=== PATIENT | female | born 1955 | race Caucasian/White ===

== ENCOUNTER 2017-03-30 19:24 | Inpatient (IN) | payer MEDICAID ==
[~2017-03-30] VITALS: Ht 162.6 cm; Wt 61.2 kg
[2017-03-31] MEDS ORDERED: LIPI10 PO (01:44)
[2017-03-31] MEDS ORDERED: LOSARTAN POTASS25 M1 (01:44)
[2017-03-31 03:23] VITALS: BP 163/87
[2017-03-31 04:20] LABS: microscopic required? YES; urine erythrocyte NEGATIVE (NEGATIVE)
[2017-03-31 04:21] LABS: MAGNESIUM 2.4 mg/dL (1.8-2.4); PHOSPHOROUS 3.9 mg/dL (2.5-4.9)
[2017-03-31 04:24] LABS: CHOLESTEROL/HDL RATIO 3.5
[2017-03-31 04:27] LABS: T3 TOTAL 1.07 ng/mL
[2017-03-31 04:28] LABS: FREE T4 1.08 ng/dL (0.76-1.46); T4(THYROXINE) 7.9 ug/dL (4.7-13.3)
[2017-03-31 09:15] VITALS: BP 152/59
[2017-03-31 13:30] VITALS: BP 153/68
[2017-03-31 16:45] LABS: BASOPHIL % 0.3 % (0-2); PLATELET COUNT 274 x10^3mcL (130-400); RED CELL DISTRIBUTION WIDTH 12.9 % (11.5-14.5)
[2017-03-31 16:46] LABS: CALCIUM 8.9 mg/dL (8.5-10.1); CARBON DIOXIDE 29.1 mmol/L (21-32); CHLORIDE SERUM 109 mmol/L (98-107); CREATININE SERUM 0.7 mg/dL (0.6-1.0); GFR1 > 60 mL/min; GLUCOSE SERUM 93 mg/dL (74-106); POTASSIUM SERUM 3.9 mmol/L (3.5-5.1); SODIUM SERUM 143 mmol/L (136-145)
[2017-03-31 17:20] VITALS: BP 131/66
[2017-03-31 17:59] VITALS: BP 131/66
[2017-03-31 21:47] VITALS: BP 135/67
[2017-04-01 05:33] VITALS: BP 147/68
[2017-04-01 07:14] LABS: BASOPHIL % 0.7 % (0-2); PLATELET COUNT 257 x10^3mcL (130-400); RED CELL DISTRIBUTION WIDTH 12.8 % (11.5-14.5)
[2017-04-01 08:00] LABS: CALCIUM 8.9 mg/dL (8.5-10.1); CARBON DIOXIDE 28.2 mmol/L (21-32); CHLORIDE SERUM 110 mmol/L (98-107); CREATININE SERUM 0.6 mg/dL (0.6-1.0); GFR1 > 60 mL/min; GLUCOSE SERUM 89 mg/dL (74-106); POTASSIUM SERUM 4.1 mmol/L (3.5-5.1); SODIUM SERUM 142 mmol/L (136-145)
[2017-04-01 09:26] VITALS: BP 156/67
[2017-04-01 13:22] VITALS: BP 138/66
[2017-04-01] MEDS ORDERED: COZAAR100 MG PO ×2 (14:48→14:51)
[2017-04-01] MEDS ORDERED: BACTRIM1 TAB PO (14:53)
[2017-04-01] MEDS ORDERED: BD LACTINEX1.4 MG PO (14:56)
[2017-04-01] MEDS ORDERED: IBUPROFEN400 MG PO (15:14)
[2017-04-01] MEDS ORDERED: GOOD SENSE OMEP20 MG PO (15:15)
[2017-04-01 15:33] VITALS: BP 138/66
== END 2017-04-01 16:32 | disposition home or self-care (01) | DRG 463 ==
LOC: ED 19:24 → DU 03-31 01:22
PROVIDERS: Family Medicine; ADMIT Family Medicine
DX: N39.0 Urinary tract infection, site not specified (principal); N17.0 Acute kidney failure with tubular necrosis; G93.41 Metabolic encephalopathy; G56.02 Carpal tunnel syndrome, left upper limb; I10 Essential (primary) hypertension; E78.5 Hyperlipidemia, unspecified; J44.9 Chronic obstructive pulmonary disease, unspecified; Z68.23 Body mass index [BMI] 23.0-23.9, adult
CPT/HCPCS: 83880; 84439; J0696; J7030; Q0092